=== PATIENT | male | born 1960 | race Caucasian/White ===

== ENCOUNTER 2018-08-14 18:58 | Inpatient (IN) ==
[2018-08-15] MEDS ORDERED: Naloxone 0.4 MG/ML INJ IVP PRN ×2 (00:52→14:26)
[2018-08-15] MEDS ORDERED: Artificial Tears SOLN 15 ML BOTTLE BOTH EYES PRN (00:55)
[2018-08-15] MEDS ORDERED: Dextrose Gel 15 GM/37.5 ML TUBE PO PRN ×4 (00:58→14:26)
[2018-08-15] MEDS ORDERED: *HR* Dextrose 50 % in Water (Syg) 50 ML SYRINGE IVP PRN ×2 (00:58→14:26)
[2018-08-15] MEDS ORDERED: D5% in Water 1,000 ML IVC PRN ×2 (00:58→14:26)
[2018-08-15 01:20] LABS: ABG Base Excess 5 mEq/L (-2 to 3); ABG HCO3 34 mEq/L (21-27); ABG Oxygen Saturation 98 % (95-98); ABG PCO2 69 mmHg (35-45); ABG PO2 114 mmHg (85-104); ABG TCO2 36 mEq/L (20-26); Blood Gas Modality PRVC; Blood Gas PEEP 5 cm H2O; Blood Gas Respiration Rate 16; Blood Gas VT 450 cc
[2018-08-15] MEDS: Artificial Tears SOLN 15 ML BOTTLE BOTH EYES SCH ×3 (01:25→13:09)
[2018-08-15 01:36] LABS: Basophils # 0.1 K/mcL (0.0-0.2); Basophils % 0.4 %; Hematocrit 44.8 % (37.5-50.1); Hemoglobin 13.6 g/dL (12.9-16.9); Immature Granulocytes % 0.8 % (0-4); Lymphocytes # 1.3 K/mcL (0.6-4.6); Lymphocytes % 9.1 %; Mean Corpuscular HGB Conc 30.4 g/dL (31.6-35.5); Mean Corpuscular Hemoglobin 29.8 pg (28.0-33.3); Mean Corpuscular Volume 98.2 fL (83.0-100.0); Mean Platelet Volume 9.7 fL (9.4-12.4); Monocytes # 1.1 K/mcL (0.0-1.3); Monocytes % 8.1 %; Neutrophils # 11.3 K/mcL (1.6-8.9); Nucleated Red Blood Cells 0.6 /100 WBC (0); Platelet Count 213 K/mcL (140-400); Red Blood Count 4.56 M/mcL (4.19-5.50); Red Cell Distribution Width 14.6 % (11.5-14.5); Segmented Neutrophils % 81.6 %
[2018-08-15 01:44] LABS: INR 1.2; Prothrombin Time 13.7 Seconds (9.4-12.1)
[2018-08-15 01:56] LABS: Alanine Aminotransferase 92 Units/L (7-52); Albumin 3.4 g/dL (3.5-5.7); Albumin/Globulin Ratio 1.1 (1.1-2.2); Alkaline Phosphatase 94 Units/L (34-104); Aspartate Amino Transferase 38 Units/L (13-39); BUN/Creatinine Ratio 28 (6-26); Bilirubin,Total 0.2 mg/dL (0.3-1.0); Blood Urea Nitrogen 27 mg/dL (6-20); Calcium 8.9 mg/dL (8.6-10.3); Carbon Dioxide 30 mEq/L (23-29); Chloride 105 mEq/L (98-107); Globulin 3.2 g/dL (2.4-3.5); Glucose 141 mg/dL (70-105); Osmolality,Calculated 301 (280-300); Sodium 142 mEq/L (136-145); Total Protein 6.6 g/dL (6.4-8.9); eGFR For Non-African Americans > 60 (> 60)
[2018-08-15] MEDS ORDERED: Lithium Oral Soln 300 MG/5 ML UDC PO SCH (02:00)
[2018-08-15] MEDS ORDERED: MethylPREDNISolone 40 MG/ML VIAL IVP SCH ×2 (02:00→18:00)
--- NOTE | 2018-08-15 02:03 | Internal Med History&Physical ---
<López Munoz - Last Filed: 08/15/18 03:51> Date of Encounter: 08/15/18 Time of Encounter: 12:45 Internal Medicine - H&P: HPI Chief complaint: AMS Admitted From: Emergency Dept Plans for Post Hospital Care: Home History of present illness: Mr. Parson is a 58 year old male with COPD, questionable history of CHF, extensive psychiatric history who presented from a long term due to history of altered mental status, shortness of breath and hypoxia. The patient was intubated in the ED and is sedated at this time, so he is unable to provide history of his own. History is provided primarily from prior notes as well as other providers. The patient apparently arrived at [facility] ED initially with confusion and was hypoxic with an SPO2 in the 50s. He also was noted to have a temperature of 100.4 according to EMS. According to documentation from the ED, the patient was initially placed on BiPAP but was not cooperative with this treatment modality and would not keep the mask on. Additionally the patient became somewhat combative. An initial ABG demonstrated a severe respiratory acidosis with a pH of 7.14 and a PaCO2 of 104 with a PaO2 of 64 and an O2 saturation of 82. He had a chest x-ray at that time as well which demonstrated ill-defined perihilar opacity which reflected possible edema versus infectious consolidation. Given the patient's poor respiratory status and inability to tolerate BiPAP, the patient was sedated and intubated, and was transferred to [facility] ICU for further management. Past Med Surg Social Fam HX - Past Medical History Medical history: non-contributory Additional medical history: patient is intubated/sedated at this time and cannot answer questions Psychiatric history: other - Social History Smoking Status: Current every day smoker Smokeless Tobacco Status: No Alcohol use: none Drug use: none Internal Medicine - H&P: Meds Acetaminophen [Non-Aspirin] 650 mg PO BID PRN 08/14/18 [History] Albuterol Sulfate [Albuterol Inhaler] 2 puff IH Q4HR PRN 08/14/18 [History] Atorvastatin Calcium [Lipitor] 40 mg PO DAILY 08/14/18 [History] Benztropine Mesylate 2 mg PO BID 08/14/18 [History] Budesonide/Formoterol 160/4.5 [Symbicort 160/4.5] 2 puff IH BIDR 08/14/18 [History] Docusate Sodium [Stool Softener] 100 mg PO HS 08/14/18 [History] Erythromycin OPTH Oint 1 appl RIGHT EYE ONCE 08/14/18 [History] Fluticasone Propionate Nasal [Flonase] 120 spray NS DAILY 08/14/18 [History] Ipratropium/Albuterol Neb [Duoneb] 1 appl IH TID PRN 08/14/18 [History] LORazepam [Ativan] 0.5 mg PO TID 08/14/18 [History] [place] Carbonate 600 mg PO HS 08/14/18 [History] Losartan [Cozaar] 25 mg PO DAILY 08/14/18 [History] Metformin HCl [Glucophage] 1,000 mg PO DAILY 08/14/18 [History] carBAMazepine [Tegretol] 200 mg PO BID 08/14/18 [History] fluPHENAZine decanoate [Fluphenazine Decanoate] 75 mg IJ Q2W 08/14/18 [History] Allergy/AdvReac Type Severity Reaction Status Date / Time No Known Allergies Allergy Verified 08/14/18 17:51 ROS unobtainable: due to mental status All Systems PM: A 10-system review of systems was performed and is negative for pertinent findings except as documented above in the HPI. - Constitutional Vitals: Temp Pulse Resp BP Pulse Ox 96.7 F L 79 16 101/75 97 08/15/18 00:42 08/15/18 02:00 08/15/18 02:00 08/15/18 02:00 08/15/18 02:00 Exam: Gen: Vitals noted. Patient is sedated and mechanically ventilated. Eyes: anicteric sclerae, moist conjunctivae; no lid-lag; Pupils equal and reactive to light HENT: Atraumatic; oropharynx with moist mucous membranes and no mucosal ulcerations, ET tube in place without obvious evidence of maceration present; normal hard and soft palate. Neck: Trachea midline; supple, no thyromegaly or lymphadenopathy Cardiac: RRR, no murmur, +S1/S2 Pulmonary: CTA bilaterally, no wheezes, rales or rhonchi, equal chest expansion Abdomen: soft, nontender, no guarding. No masses or hepatosplenomegaly. There is increased vascularity noted on the surface of his abdomen, however [place]. Extremities: no BLE edema, nontender calf, no cyanosis or clubbing. Angioma present on patient's face Skin: Normal temperature, turgor and texture; no rash, ulcers or subcutaneous nodules Neuro: Patient sedated and mechanically ventilated Internal Med - H&P Results - Labs CBC & Chem 7: 08/15/18 01:23 08/15/18 01:23 Labs: Short CBC 08/15/18 Range/Units 01:23 WBC 13.9 H (4.3-11.1) K/mcL Hgb 13.6 (12.9-16.9) g/dL Hct 44.8 (37.5-50.1) % Plt Count 213 (140-400) K/mcL Neutrophils # 11.3 H (1.6-8.9) K/mcL BMP 08/15/18 01:23 Sodium 142 Potassium 5.0 Chloride 105 Carbon Dioxide 30 H BUN 27 H Creatinine 0.97 Glucose 141 H Calcium 8.9 Cardiac Enzymes 08/15/18 Range/Units 01:23 Troponin I 0.09 H* (< 0.04) ng/mL Liver Function 08/15/18 Range/Units 01:23 Total Bilirubin 0.2 L (0.3-1.0) mg/dL AST 38 (13-39) Units/L ALT 92 H (7-52) Units/L Alkaline Phosphatase 94 (34-104) Units/L Albumin 3.4 L (3.5-5.7) g/dL - ABG Interpretation ABG results: 08/15/18 01:17 ABG pH 7.30 L ABG pCO2 69 H ABG pO2 114 H D ABG HCO3 34 H ABG Total CO2 36 H ABG O2 Saturation 98 ABG Base Excess 5 H - Assessment and plan (1) Acute respiratory failure with hypoxia and hypercapnia Current Visit: Yes Status: Acute Assessment and plan: Acute hypoxic hypercapnic respiratory failure Secondary to COPD exacerbation with pneumonia Patient arrived to ED with SPO2 in the 50s, acute hypercapnic encephalopathy CXR Showed perihilar edema vs consolidation ABG 08/14 - 7.14/104/64/36/82% (pre-intubation) 08/15 - 7.30/69/114/34/98 on 70% FIO2 (Post-intubation) Received Solu-medrol and Lasix in ED at [facility] Plan Admit to ICU Continuous O2 Monitoring Mechanical ventilation at this time, consult to pulmonology Propofol for sedation Treat COPD exacerbation and Pna as below (2) Acute exacerbation of chronic obstructive pulmonary disease (COPD) Current Visit: Yes Status: Acute Assessment and plan: Acute exacerbation of COPD Patient is increased O2 demand, CO2 retention Apparently the patient is a heavy smoker On arrival, patient's PaCO2 is 104, decreased with intubation He did receive IV Solu-Medrol 125 mg, azithromycin and Rocephin in the ED Plan Continue mechanical ventilation Solu-medrol IV 40mg q8h duonebs q4h scheduled Levaquin IV Continuous O2 monitoring (3) Community acquired pneumonia Current Visit: Yes Status: Acute Assessment and plan: Suspected CAP Presented with Fever 100.4, HR 110, Hypoxia, WBC 13 CXR shows suspected perihilar consolidation Received IV Azithromycin and Rocephin in the ED for COPD exacerbation/PNA We will switch to Levaquin at this time Repeat BMP in the AM Qualifiers: Laterality: unspecified laterality Qualified Code(s): J18.9 - Pneumonia, unspecified organism (4) Elevated troponin Current Visit: Yes Status: Acute Assessment and plan: Elevated Troponin, 0.14 No obvious indication of cardiac strain EKG is negative for acute ischemic changes Suspect this is secondary to demand ischemia in the setting of COPD exacerbation/PNA The patient does, however, have pulmonary edema on CXR and mildly elevated BNP at 300 Plan Continuous cardiac monitoring Trend trop q6h x3 Echocardiogram in am Consider cardio consult if necessary (5) Bipolar disorder Current Visit: Yes Status: Acute Assessment and plan: Suspected Bipolar Disorder, currently on multiple psychiatric medications We will continue those that can be given per OG, including [place] Qualifiers: Active/Remission status: remission status unspecified Qualified Code(s): F31.9 - Bipolar disorder, unspecified (6) Congestive heart failure Current Visit: Yes Status: Suspected Assessment and plan: History of CHF Mildly elevated BNP, CXR shows mild pulmonary edema Patient got IV Lasix 40mg in ED We will continue to monitor, consider additional lasix as needed Echocardiogram in AM Qualifiers: Heart failure type: diastolic Heart failure chronicity: acute Qualified Code(s): I50.31 - Acute diastolic (congestive) heart failure (7) DVT prophylaxis Current Visit: Yes Status: Acute Assessment and plan: SQ Heparin - Time Spent With Patient Total time spent is greater than 50% in coordination of care (as documented) at patient's floor/unit and/or counseling patient: <Juan A Haas - Last Filed: 08/15/18 07:15> Date of Encounter: 08/15/18 Internal Medicine - H&P: HPI History of present illness: Mr. Parson is a 58 year old male All Systems PM: A 10-system review of systems was performed and is negative for pertinent findings except as documented above in the HPI. - Constitutional Vitals: Temp Pulse Resp BP Pulse Ox 98.8 F 75 16 106/72 97 08/15/18 04:00 08/15/18 06:00 08/15/18 06:00 08/15/18 06:00 08/15/18 06:00 Internal Med - H&P Results - Labs CBC & Chem 7: 08/15/18 01:23 08/15/18 01:23 Labs: Short CBC 08/15/18 Range/Units 01:23 WBC 13.9 H (4.3-11.1) K/mcL Hgb 13.6 (12.9-16.9) g/dL Hct 44.8 (37.5-50.1) % Plt Count 213 (140-400) K/mcL Neutrophils # 11.3 H (1.6-8.9) K/mcL BMP 08/15/18 01:23 Sodium 142 Potassium 5.0 Chloride 105 Carbon Dioxide 30 H BUN 27 H Creatinine 0.97 Glucose 141 H Calcium 8.9 Cardiac Enzymes 08/15/18 Range/Units 01:23 Troponin I 0.09 H* (< 0.04) ng/mL Liver Function 08/15/18 Range/Units 01:23 Total Bilirubin 0.2 L (0.3-1.0) mg/dL AST 38 (13-39) Units/L ALT 92 H (7-52) Units/L Alkaline Phosphatase 94 (34-104) Units/L Albumin 3.4 L (3.5-5.7) g/dL - ABG Interpretation ABG results: 08/15/18 08/15/18 01:17 05:27 ABG pH 7.30 L 7.36 ABG pCO2 69 H 58 H ABG pO2 114 H D 111 H ABG HCO3 34 H 33 H ABG Total CO2 36 H 35 H ABG O2 Saturation 98 98 ABG Base Excess 5 H 6 H - Time Spent With Patient Total time spent is greater than 50% in coordination of care (as documented) at patient's floor/unit and/or counseling patient: - Attending Attestation I saw and evaluated the patient. I reviewed the residents note, performed my own physical examination and agree with findings and plan as documented in the residents note. Patient seen and examined on 08/15/18. Patient presented to [facility] ER with shortness of breath and hypoxia. Patient has history of COPD. Currently intubated. Elevated PCO2 on ABG, but improving now. Chest x-ray shows possible pneumonia. Will continue to monitor in the ICU, treat patient's pneumonia and COPD exacerbation.
[2018-08-15] MEDS: Insulin LISPRO 300 UNITS/3 ML VIAL SQ SCH ×3 (05:26→17:31)
[2018-08-15] MEDS: *HR* Heparin 5,000 UNIT/ML VIAL SQ SCH ×2 (05:28→14:12)
[2018-08-15 05:31] LABS: ABG Base Excess 6 mEq/L (-2 to 3); ABG HCO3 33 mEq/L (21-27); ABG Oxygen Saturation 98 % (95-98); ABG PCO2 58 mmHg (35-45); ABG PH 7.36 pH Units (7.32-7.45); ABG PO2 111 mmHg (85-104); ABG TCO2 35 mEq/L (20-26); Blood Gas Modality PRVC; Blood Gas PEEP 5 cm H2O; Blood Gas Respiration Rate 16; Blood Gas VT 480 cc
[2018-08-15 07:28] LABS: Estimated Average Glucose 123 mg/dl; Hemoglobin A1C 5.9 %
[2018-08-15] MEDS ORDERED: Dexmedetomidine HCl 400 MCG/100 ML MLS IVC ONE (07:59)
[2018-08-15] MEDS ORDERED: Dexmedetomidine HCl 400 MCG/100 ML MLS IVC SCH (08:00)
[2018-08-15] MEDS ORDERED: *HR* LORazepam 2 MG/ML VIAL IVP ONE (08:20)
--- NOTE | 2018-08-15 08:21 | Pulmonology Consult Note ---
<BravoraghavGeorgina goyal M - Last Filed: 08/15/18 09:17> Date of Encounter: 08/15/18 Medications and Allergies Acetaminophen [Non-Aspirin] 650 mg PO BID PRN 08/14/18 [History] Albuterol Sulfate [Albuterol Inhaler] 2 puff IH Q4HR PRN 08/14/18 [History] Atorvastatin Calcium [Lipitor] 40 mg PO DAILY 08/14/18 [History] Benztropine Mesylate 2 mg PO BID 08/14/18 [History] Budesonide/Formoterol 160/4.5 [Symbicort 160/4.5] 2 puff IH BIDR 08/14/18 [History] Docusate Sodium [Stool Softener] 100 mg PO HS 08/14/18 [History] Erythromycin OPTH Oint 1 appl RIGHT EYE ONCE 08/14/18 [History] Fluticasone Propionate Nasal [Flonase] 120 spray NS DAILY 08/14/18 [History] Ipratropium/Albuterol Neb [Duoneb] 1 appl IH TID PRN 08/14/18 [History] LORazepam [Ativan] 0.5 mg PO TID 08/14/18 [History] Puryear Carbonate 600 mg PO HS 08/14/18 [History] Losartan [Cozaar] 25 mg PO DAILY 08/14/18 [History] Metformin HCl [Glucophage] 1,000 mg PO DAILY 08/14/18 [History] carBAMazepine [Tegretol] 200 mg PO BID 08/14/18 [History] fluPHENAZine decanoate [Fluphenazine Decanoate] 75 mg IJ Q2W 08/14/18 [History] 3 Allergy/AdvReac Type Severity Reaction Status Date / Time No Known Allergies Allergy Verified 08/14/18 17:51 All Systems: The remainder of the systems were reviewed and are negative Physical Examination Vital Signs: Vital Signs, Last 4 Hours Temp Pulse Resp BP Pulse Ox 08/15/18 08:10 23 138/108 94 08/15/18 08:00 97.6 F 08/15/18 06:00 75 16 106/72 97 08/15/18 05:51 16 97 08/15/18 05:00 77 16 99/70 97 Ventilator Settings Ventilator Settings: Ventilator Settings, Last 8 Hours Ventilator Tidal Volume 480 Setting Ventilator Tidal Volume 480 Setting Ventilator Tidal Volume 480 Setting Ventilator Tidal Volume 480 Setting Ventilator Tidal Volume 480 Setting Ventilator Tidal Volume 480 Setting Ventilator Tidal Volume 480 Setting Ventilator Tidal Volume 480 Setting Ventilator Tidal Volume 450 Setting Ventilator Tidal Volume 450 Setting Ventilator Tidal Volume 450 Setting Ventilator Tidal Volume 450 Setting Ventilator Respiratory Rate 16 Setting Ventilator Respiratory Rate 16 Setting Ventilator Respiratory Rate 16 Setting Ventilator Respiratory Rate 16 Setting Ventilator Respiratory Rate 16 Setting Ventilator Respiratory Rate 16 Setting Ventilator Respiratory Rate 16 Setting Ventilator Respiratory Rate 16 Setting Ventilator Respiratory Rate 16 Setting Ventilator Respiratory Rate 16 Setting Ventilator Respiratory Rate 16 Setting Ventilator Respiratory Rate 16 Setting Actual Respiratory Rate 16 Actual Respiratory Rate 16 Actual Respiratory Rate 16 Actual Respiratory Rate 16 Actual Respiratory Rate 16 Actual Respiratory Rate 16 Actual Respiratory Rate 16 Actual Respiratory Rate 16 Actual Respiratory Rate 16 Positive End Expiratory 5 Pressure Positive End Expiratory 5 Pressure Positive End Expiratory 5 Pressure Positive End Expiratory 5 Pressure Positive End Expiratory 5 Pressure Positive End Expiratory 5 Pressure Positive End Expiratory 5 Pressure Positive End Expiratory 5 Pressure Positive End Expiratory 5 Pressure Positive End Expiratory 5 Pressure Positive End Expiratory 5 Pressure Positive End Expiratory 5 Pressure Peak Inspiratory Airway 24 Pressure Peak Inspiratory Airway 24 Pressure Peak Inspiratory Airway 23 Pressure Peak Inspiratory Airway 24 Pressure Peak Inspiratory Airway 23 Pressure Peak Inspiratory Airway 22 Pressure Peak Inspiratory Airway 24 Pressure Peak Inspiratory Airway 22 Pressure Peak Inspiratory Airway 24 Pressure Peak Inspiratory Airway 22 Pressure Results - Laboratory Findings CBC and BMP: 08/15/18 01:23 08/15/18 01:23 ABG ABG pH 7.36 pH Units (7.32-7.45) 08/15/18 05:27 ABG pCO2 58 mmHg (35-45) H 08/15/18 05:27 ABG pO2 111 mmHg (85-104) H 08/15/18 05:27 ABG O2 Saturation 98 % (95-98) 08/15/18 05:27 PT/INR, D-dimer PT 13.7 Seconds (9.4-12.1) H 08/15/18 01:23 Abnormal lab findings: Abnormal lab results WBC 13.9 K/mcL (4.3-11.1) H 08/15/18 01:23 MCHC 30.4 g/dL (31.6-35.5) L 08/15/18 01:23 RDW 14.6 % (11.5-14.5) H 08/15/18 01:23 Neutrophils # 11.3 K/mcL (1.6-8.9) H 08/15/18 01:23 Nucleated RBCs/100 WBC 0.6 /100 WBC (0) H 08/15/18 01:23 PT 13.7 Seconds (9.4-12.1) H 08/15/18 01:23 ABG pCO2 58 mmHg (35-45) H 08/15/18 05:27 ABG pO2 111 mmHg (85-104) H 08/15/18 05:27 ABG HCO3 33 mEq/L (21-27) H 08/15/18 05:27 ABG Total CO2 35 mEq/L (20-26) H 08/15/18 05:27 ABG Base Excess 6 mEq/L (-2 to 3) H 08/15/18 05:27 Carbon Dioxide 30 mEq/L (23-29) H 08/15/18 01:23 BUN 27 mg/dL (6-20) H 08/15/18 01:23 BUN/Creatinine Ratio 28 (6-26) H 08/15/18 01:23 Glucose 141 mg/dL (70-105) H 08/15/18 01:23 POC Glucose 136 mg/dL (70-99) H 08/15/18 05:22 Hemoglobin A1c 5.9 % (-5.6) H 08/15/18 01:23 Calculated Osmolality 301 (280-300) H 08/15/18 01:23 Total Bilirubin 0.2 mg/dL (0.3-1.0) L 08/15/18 01:23 ALT 92 Units/L (7-52) H 08/15/18 01:23 Troponin I 0.09 ng/mL (< 0.04) H* 08/15/18 01:23 Albumin 3.4 g/dL (3.5-5.7) L 08/15/18 01:23 - Clinical Findings Intake & Output: Intake & Output 08/14/18 08/15/18 08/15/18 23:59 07:59 15:59 Intake Total 85 / 85 Output Total 375 / 375 175 / 175 Balance -290 / -290 -175 / -175 Weight 92.4 kg Consult Discharge Plan - Plan Referrals: NONE,PCP [Primary Care Provider] - - Attending Attestation I examined this patient and my medical decision-making was reviewed with the Resident Physician. I agree with the documented findings, disposition and treatment plan as described except to the extent set forth below. Patient seen and examined. Labs, radiology, chart personally reviewed. Agree with resident's history and physical, assessment, plan with following comments: INSTRUCTOR OF SOCIOLOGY: Patient follows simple commands, is not clear to me about his baseline mental status, however I see him agitated and would need to have him on Precedex if he gets the appointment to be extubated Pulmonary: Acceptable oxygenation and ventilation, he is agitated and I believe he might be able to be extubated and I would have him on spontaneous breathing trial and assess for extubation. Challenge would be if he would need isra nvasive ventilation with his mental status and may be high flow oxygen for his acute hypoxic respiratory failure might be helpful. With his history of smoking and his chest x-ray to my interpretation is not clear to me whether he has some sorts of lung lesions in her right side or not and because of his age he will meet criteria to have the CT chest without contrast. He will be on bronchodilators and will be careful with high-dose systemic steroid with possibility of psychosis might happen. He will be on empiric antibiotics as well. Cardiovascular: stable GI: Nutrition per dietary and GI prophylaxis per routine Heme: DVT prophylaxis per routine ID: Continue antibiotics and plan to de-escalation Renal; urine out put and renal funtion reviewed Endorcine: blood glucose is monitored Lines: all lines checked and no evidence of infections Skin: skin care to prevent pressure ulcers per nursing routine care I spent 35 min of Critical Care time with this patient. It involved decision making of high complexity to assess, manipulate, and support vital organ system failure and/or to prevent further life threatening deterioration of the patient's condition. The time involved in the performance of separately reportable procedures was not counted toward critical care time. <Beryl Simmons - Last Filed: 08/15/18 10:34> Date of Encounter: 08/15/18 Time of Encounter: 08:21 Assessment and Plan (1) Acute respiratory failure with hypoxia and hypercapnia Current Visit: Yes Status: Acute Likely etiology of COPD exacerbation vs new onset CHF given elevated BNP. COPD exacerbation likely given signification smoking history but complicated by his inability to participate in care. ET tube removed and now tolerating high flow O2. - decrease solumedrol to q 12 from q 8 - continue dounebs Echo ordered CT chest ordered (2) Community acquired pneumonia Current Visit: Yes Status: Acute Chest x-ray with increased markings in upper right lung but no consolation with mild elevated WBC and history of temperature 100.4 on presentation - continue levaquin - see above CT chest to evaluate Qualifiers: Laterality: unspecified laterality Qualified Code(s): J18.9 - Pneumonia, unspecified organism (3) Psychiatric diagnosis Current Visit: Yes Status: Acute Unknown psychiatric diagnosis but history of hallucinations, possible bipolar disorder given lithium on medication list - recent agitation possibly exacerbated by ICU delirium and necessary steroid but will decrease dose to q 12 - trial 1 mg ativan once, continue home 0.5 tid - titrate precedex to keep awake but calm - social work consult to [facility] and contact guardian Consider psych consult if he doesn't improve once home medications confirmed by [facility]- start Tegretol & benztropine once confirmed and hold fluphenazine (4) Elevated troponin Current Visit: Yes Status: Acute Downtrending likely due to demand ischemia. Elevated troponin downtrend 0.14, 0.09. and 007. - repeat EKG as not on file - echo pending (5) Congestive heart failure Current Visit: Yes Status: Suspected Elevated BNP 310 with dyspnea - echo pending Qualifiers: Heart failure type: diastolic Heart failure chronicity: acute Qualified Code(s): I50.31 - Acute diastolic (congestive) heart failure (6) DM (diabetes mellitus) Current Visit: Yes Status: Acute DM currently on metformin with A1c 5.9 in pre-DM ranges v well controlled - hold metformin - continue low dose ISS Qualifiers: Diabetes mellitus type: type 2 Diabetes mellitus mcfp insulin use: without change lead use Diabetes mellitus complication status: with unspecified complications Qualified Code(s): E11.8 - Type 2 diabetes mellitus with unspecified complications (7) Syncope Current Visit: Yes Status: Acute Per half-way alerted mental status from his baseline with possible pre- syncopal episode likley due to hypoxia - consider head imaging pending clinical course/. Qualifiers: Syncope type: unspecified Qualified Code(s): R55 - Syncope and collapse (8) DVT prophylaxis Current Visit: Yes Status: Acute heparin sq History of Present Illness Consult date: 08/15/18 Requesting physician: López Munoz Reason for consult: dyspnea Chief complaint: acute on chronic respiratory failure History of present illness: 58 y/o male with COPD and unclear psychiatric history presented to [facility] ED from [facility] for altered mental status. He was intubated after failed Bipap due to hypoxia and decreased responsiveness. On transfer patient has become increasing agitated and refuses to comply with care- he attempted to self extubate this morning. This morning attempting to escape bed and fighting against nursing - thus given 1 mg ativan, precedex titrated and restrained for this own safety. Baseline mentation is unknown and little history available. History from half-way; he became difficult to wake up for dinner at night and cyanotic face . He acted normal day before with out complaints and always day- night swapped so sleepiness not unusual. Dayanna Raymundo runs [facility]-way where he has lived for over ten years. 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 He gets injection twice month of fluphenazine, carbazepine two tablets 200 mg bid , benztropine 2 mg bid . PMHx per [facility] HTN, DM, and COPD with out oxygen - no recent hospitalizations or illness. 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 Smoking 2-3 pk per day. EtOH and illicit unlikely unknown if he sneaks it. He has court appointed guardian Hammad Fine at [phone] and social media marketing analyst Gabrielle Tony at [place] ext [phone]. Past Med Surg Social Fam HX - Past Medical History Medical history: non-contributory Additional medical history: patient is intubated/sedated at this time and cannot answer questions Psychiatric history: other - Social History Smoking Status: Current every day smoker Smokeless Tobacco Status: No Alcohol use: none Drug use: none ROS unobtainable: due to mental status All Systems: The remainder of the systems were reviewed and are negative Physical Examination Vital Signs: Vital Signs, Last 4 Hours Temp Pulse Resp BP Pulse Ox 08/15/18 08:10 23 138/108 94 08/15/18 08:00 97.6 F 08/15/18 06:00 75 16 106/72 97 08/15/18 05:51 16 97 08/15/18 05:00 77 16 99/70 97 General appearance: no acute distress, asleep Eyes: nonicteric ENT: oropharynx moist Effort: mildly labored Auscultation: bilateral: wheezes, rhonchi (popping over left chest) Gastrointestinal: normoactive bowel sounds, soft, non-tender Integumentary: normal Extremities: no cyanosis, no edema Musculoskeletal: no deformities unable to assess due to mental status anxious (no sedated) Ventilator Settings Ventilator Settings: Ventilator Settings, Last 8 Hours Ventilator Tidal Volume 480 Setting Ventilator Tidal Volume 480 Setting Ventilator Tidal Volume 480 Setting Ventilator Tidal Volume 480 Setting Ventilator Tidal Volume 480 Setting Ventilator Tidal Volume 480 Setting Ventilator Tidal Volume 480 Setting Ventilator Tidal Volume 480 Setting Ventilator Tidal Volume 450 Setting Ventilator Tidal Volume 450 Setting Ventilator Tidal Volume 450 Setting Ventilator Tidal Volume 450 Setting Ventilator Respiratory Rate 16 Setting Ventilator Respiratory Rate 16 Setting Ventilator Respiratory Rate 16 Setting Ventilator Respiratory Rate 16 Setting Ventilator Respiratory Rate 16 Setting Ventilator Respiratory Rate 16 Setting Ventilator Respiratory Rate 16 Setting Ventilator Respiratory Rate 16 Setting Ventilator Respiratory Rate 16 Setting Ventilator Respiratory Rate 16 Setting Ventilator Respiratory Rate 16 Setting Ventilator Respiratory Rate 16 Setting Actual Respiratory Rate 16 Actual Respiratory Rate 16 Actual Respiratory Rate 16 Actual Respiratory Rate 16 Actual Respiratory Rate 16 Actual Respiratory Rate 16 Actual Respiratory Rate 16 Actual Respiratory Rate 16 Actual Respiratory Rate 16 Positive End Expiratory 5 Pressure Positive End Expiratory 5 Pressure Positive End Expiratory 5 Pressure Positive End Expiratory 5 Pressure Positive End Expiratory 5 Pressure Positive End Expiratory 5 Pressure Positive End Expiratory 5 Pressure Positive End Expiratory 5 Pressure Positive End Expiratory 5 Pressure Positive End Expiratory 5 Pressure Positive End Expiratory 5 Pressure Positive End Expiratory 5 Pressure Peak Inspiratory Airway 24 Pressure Peak Inspiratory Airway 24 Pressure Peak Inspiratory Airway 23 Pressure Peak Inspiratory Airway 24 Pressure Peak Inspiratory Airway 23 Pressure Peak Inspiratory Airway 22 Pressure Peak Inspiratory Airway 24 Pressure Peak Inspiratory Airway 22 Pressure Peak Inspiratory Airway 24 Pressure Peak Inspiratory Airway 22 Pressure Results - Laboratory Findings CBC and BMP: 08/15/18 01:23 08/15/18 01:23 ABG ABG pH 7.36 pH Units (7.32-7.45) 08/15/18 05:27 ABG pCO2 58 mmHg (35-45) H 08/15/18 05:27 ABG pO2 111 mmHg (85-104) H 08/15/18 05:27 ABG O2 Saturation 98 % (95-98) 08/15/18 05:27 PT/INR, D-dimer PT 13.7 Seconds (9.4-12.1) H 08/15/18 01:23 Abnormal lab findings: Abnormal lab results WBC 13.9 K/mcL (4.3-11.1) H 08/15/18 01:23 MCHC 30.4 g/dL (31.6-35.5) L 08/15/18 01:23 RDW 14.6 % (11.5-14.5) H 08/15/18 01:23 Neutrophils # 11.3 K/mcL (1.6-8.9) H 08/15/18 01:23 Nucleated RBCs/100 WBC 0.6 /100 WBC (0) H 08/15/18 01:23 PT 13.7 Seconds (9.4-12.1) H 08/15/18 01:23 ABG pCO2 58 mmHg (35-45) H 08/15/18 05:27 ABG pO2 111 mmHg (85-104) H 08/15/18 05:27 ABG HCO3 33 mEq/L (21-27) H 08/15/18 05:27 ABG Total CO2 35 mEq/L (20-26) H 08/15/18 05:27 ABG Base Excess 6 mEq/L (-2 to 3) H 08/15/18 05:27 Carbon Dioxide 30 mEq/L (23-29) H 08/15/18 01:23 BUN 27 mg/dL (6-20) H 08/15/18 01:23 BUN/Creatinine Ratio 28 (6-26) H 08/15/18 01:23 Glucose 141 mg/dL (70-105) H 08/15/18 01:23 POC Glucose 136 mg/dL (70-99) H 08/15/18 05:22 Hemoglobin A1c 5.9 % (-5.6) H 08/15/18 01:23 Calculated Osmolality 301 (280-300) H 08/15/18 01:23 Total Bilirubin 0.2 mg/dL (0.3-1.0) L 08/15/18 01:23 ALT 92 Units/L (7-52) H 08/15/18 01:23 Troponin I 0.09 ng/mL (< 0.04) H* 08/15/18 01:23 Albumin 3.4 g/dL (3.5-5.7) L 08/15/18 01:23 - Clinical Findings Intake & Output: Intake & Output 08/14/18 08/15/18 08/15/18 23:59 07:59 15:59 Intake Total 85 / 85 Output Total 375 / 375 175 / 175 Balance -290 / -290 -175 / -175 Weight 92.4 kg
[2018-08-15] MEDS ORDERED: *HR* LORazepam 2 MG/ML VIAL ONE (08:23)
[2018-08-15] MEDS: Ipratropium/Albuterol Neb 3 ML IH SCH ×5 (08:46→23:09)
[2018-08-15] MEDS: *HR* LORazepam 0.5 MG TABLET GTUBE SCH ×2 (08:51→14:13)
[2018-08-15] MEDS ORDERED: Levofloxacin 750 MG/150 ML 750 MG/150 ML BAG IVPB SCH (09:00)
[2018-08-15] MEDS ORDERED: Chlorhexidine Rinse 15 ML MOUTHWASH MM SCH (09:00)
[2018-08-15] MEDS ORDERED: Pantoprazole 40 MG VIAL IVP SCH (10:30)
[2018-08-15] MEDS ORDERED: Erythromycin OPTH Oint RIGHT EYE ONE (11:30)
[2018-08-15] MEDS ORDERED: *HR* LORazepam 0.5 MG TABLET GTUBE SCH (15:00)
[2018-08-15] MEDS: MethylPREDNISolone 40 MG/ML VIAL IVP SCH (17:42)
[2018-08-15] MEDS ORDERED: Insulin LISPRO 300 UNITS/3 ML VIAL SQ SCH (18:00)
[2018-08-15] MEDS: *HR* LORazepam 0.5 MG TABLET PO SCH (20:04)
[2018-08-15] MEDS: Budesonide/Formoterol 160/4.5 1 PUFF INH IH SCH (20:30)
[2018-08-15] MEDS ORDERED: Lithium Carbonate 300 MG CAPSULE PO SCH (21:00)
[2018-08-15] MEDS ORDERED: Budesonide/Formoterol 160/4.5 1 PUFF INH IH SCH (22:00)
[2018-08-16] MEDS: Insulin LISPRO 300 UNITS/3 ML VIAL SQ SCH ×4 (02:49→17:27)
[2018-08-16] MEDS: Lithium Oral Soln 300 MG/5 ML UDC PO SCH ×2 (03:14→19:40)
[2018-08-16] MEDS: *HR* Heparin 5,000 UNIT/ML VIAL SQ SCH ×4 (03:14→19:39)
[2018-08-16 04:10] LABS: Basophils % 0.2 %; Eosinophils % 0.3 %; Hematocrit 45.7 % (37.5-50.1); Hemoglobin 13.8 g/dL (12.9-16.9); Immature Granulocytes % 0.5 % (0-4); Lymphocytes # 1.7 K/mcL (0.6-4.6); Lymphocytes % 12.9 %; Mean Corpuscular HGB Conc 30.2 g/dL (31.6-35.5); Mean Corpuscular Hemoglobin 29.8 pg (28.0-33.3); Mean Corpuscular Volume 98.7 fL (83.0-100.0); Mean Platelet Volume 9.9 fL (9.4-12.4); Monocytes % 7.3 %; Neutrophils # 10.4 K/mcL (1.6-8.9); Nucleated Red Blood Cells 0.2 /100 WBC (0); Platelet Count 244 K/mcL (140-400); Red Blood Count 4.63 M/mcL (4.19-5.50); Segmented Neutrophils % 78.8 %
[2018-08-16] MEDS: Ipratropium/Albuterol Neb 3 ML IH SCH ×6 (04:19→23:54)
[2018-08-16 04:32] LABS: Alanine Aminotransferase 93 Units/L (7-52); Albumin 3.3 g/dL (3.5-5.7); Albumin/Globulin Ratio 1.1 (1.1-2.2); Alkaline Phosphatase 96 Units/L (34-104); Aspartate Amino Transferase 42 Units/L (13-39); BUN/Creatinine Ratio 27 (6-26); Bilirubin,Indirect 0.3 mg/dL (0.0-1.2); Bilirubin,Total 0.3 mg/dL (0.3-1.0); Blood Urea Nitrogen 22 mg/dL (6-20); Calcium 9.1 mg/dL (8.6-10.3); Carbon Dioxide 32 mEq/L (23-29); Chloride 104 mEq/L (98-107); Globulin 3.1 g/dL (2.4-3.5); Glucose 111 mg/dL (70-105); Osmolality,Calculated 296 (280-300); Potassium 4.5 mEq/L (3.5-5.1); Sodium 141 mEq/L (136-145); Total Protein 6.4 g/dL (6.4-8.9); eGFR For Non-African Americans > 60 (> 60)
[2018-08-16] MEDS: MethylPREDNISolone 40 MG/ML VIAL IVP SCH (06:16)
[2018-08-16] MEDS: Budesonide/Formoterol 160/4.5 1 PUFF INH IH SCH ×2 (07:59→20:01)
[2018-08-16] MEDS: Levofloxacin 750 MG/150 ML 750 MG/150 ML BAG IVPB SCH (08:20)
[2018-08-16] MEDS: *HR* LORazepam 0.5 MG TABLET PO SCH ×3 (08:21→19:39)
[2018-08-16] MEDS ORDERED: Pantoprazole 40 MG VIAL IVP SCH (09:00)
[2018-08-16] MEDS: predniSONE 20 MG TABLET PO SCH (09:30)
--- NOTE | 2018-08-16 10:58 | Internal Med Progress Note ---
Hospitalist Progress Note - Encounter Date of Encounter: 08/16/18 Time of Encounter: 10:57 - Subjective Interval History: 58 M admitted to ICU for acute resp failure norma secondary to PNA Seen and examined at bedside No new complains He remains confused, but not agitated He doesn't seem to retain any information at this time Head CT is negative Still requiring 4L O2 According to [facility], patient is AAOX3 and usually not agitated, however, they endorse reversal of sleep patterns, no abdomen imaging here, obtain ammonia - Exam Vitals: Temp Pulse Resp BP Pulse Ox 97.8 F 82 16 128/98 94 08/16/18 07:35 08/16/18 07:35 08/16/18 07:59 08/16/18 07:35 08/16/18 07:59 Exam: Gen: VSS. Not agitated, confused, oriented to self only, Eyes: anicteric sclerae, not pale HENT: Atraumatic; oropharynx with moist mucous membranes Neck: Normal on inspection Cardiac: RRR, no murmur, +S1/S2 Pulmonary: Bilateral rhonchi Abdomen: soft, nontender, no guarding. No masses or hepatosplenomegaly. There is increased vascularity noted on the surface of his abdomen, however [place]. Extremities: no BLE edema, nontender calf, no cyanosis or clubbing. Angioma present on patient's face Skin: Normal temperature, turgor and texture; no rash, ulcers or subcutaneous nodules Neuro: Awake, alert, oriented to person only, speech is without deficits, no facial paralysis, no gross motor deficits - Assessment and Plan (1) Acute exacerbation of chronic obstructive pulmonary disease (COPD) Current Visit: Yes Status: Acute Assessment and Plan: Change steroids to po Continue duoneb Continue antibiotics (2) Acute respiratory failure with hypoxia and hypercapnia Current Visit: Yes Status: Acute Assessment and Plan: Improving Continue O2 Wean as tolerated (3) Bipolar disorder Current Visit: Yes Status: Chronic Assessment and Plan: continue home meds (4) DM (diabetes mellitus) Current Visit: Yes Status: Chronic Assessment and Plan: SSI FS ACHS A1C 5.9-Controlled (5) DVT prophylaxis Current Visit: Yes Status: Acute Assessment and Plan: SQ heparin (6) Psychiatric diagnosis Current Visit: Yes Status: Chronic Assessment and Plan: Continue home meds - Time Spent with Patient Total time spent is greater than 50% in coordination of care (as documented) at patient's floor/unit and/or counseling patient: Plan of Care Discussed with: nurse Internal Medicine: Result - Labs CBC & Chem 7: 08/16/18 03:44 08/16/18 03:44 Labs: Short CBC 08/16/18 Range/Units 03:44 WBC 13.2 H (4.3-11.1) K/mcL Hgb 13.8 (12.9-16.9) g/dL Hct 45.7 (37.5-50.1) % Plt Count 244 (140-400) K/mcL Neutrophils # 10.4 H (1.6-8.9) K/mcL BMP 08/16/18 03:44 Sodium 141 Potassium 4.5 Chloride 104 Carbon Dioxide 32 H BUN 22 H Creatinine 0.81 Glucose 111 H Calcium 9.1 Cardiac Enzymes 08/15/18 Range/Units 13:14 Troponin I 0.07 H* (< 0.04) ng/mL Liver Function 08/16/18 Range/Units 03:44 Total Bilirubin 0.3 (0.3-1.0) mg/dL Direct Bilirubin 0.0 (0.0-0.2) mg/dL AST 42 H (13-39) Units/L ALT 93 H (7-52) Units/L Alkaline Phosphatase 96 (34-104) Units/L Albumin 3.3 L (3.5-5.7) g/dL - ABG Interpretation ABG results: ABG ABG pH 7.36 pH Units (7.32-7.45) 08/15/18 05:27 ABG pCO2 58 mmHg (35-45) H 08/15/18 05:27 ABG pO2 111 mmHg (85-104) H 08/15/18 05:27 ABG O2 Saturation 98 % (95-98) 08/15/18 05:27 PT/INR, D-dimer PT 13.7 Seconds (9.4-12.1) H 08/15/18 01:23 - Impressions Impressions Chest CT 08/15/18 08:03 IMPRESSION: 1. Scarring seen in both lungs 2. No acute abnormalities seen in the chest 3. No endobronchial lesions D/ / López Hussein MD / López Hussein MD Interpreting Provider: López Hussein MD Head CT 08/16/18 08:15 IMPRESSION: No acute intracranial abnormality. D/ / Melvin Douglas MD / Melvin Douglas MD Interpreting Provider: Melvin Douglas MD Consult Discharge Plan - Plan Referrals: NONE,PCP [Primary Care Provider] - (3) Bipolar disorder Qualifiers: Active/Remission status: remission status unspecified Qualified Code(s): F31.9 - Bipolar disorder, unspecified (4) DM (diabetes mellitus) Qualifiers: Diabetes mellitus type: type 2 Diabetes mellitus day spa manager insulin use: without day spa manager use Diabetes mellitus complication status: with unspecified complications Qualified Code(s): E11.8 - Type 2 diabetes mellitus with unspecified complications
[2018-08-17] MEDS: Insulin LISPRO 300 UNITS/3 ML VIAL SQ SCH ×5 (03:20→20:38)
[2018-08-17] MEDS: *HR* Heparin 5,000 UNIT/ML VIAL SQ SCH ×3 (03:52→20:42)
[2018-08-17] MEDS: Ipratropium/Albuterol Neb 3 ML IH SCH ×6 (03:57→23:41)
[2018-08-17 04:52] LABS: Basophils % 0.2 %; Eosinophils # 0.1 K/mcL (0.0-0.6); Hematocrit 43.8 % (37.5-50.1); Hemoglobin 13.5 g/dL (12.9-16.9); Immature Granulocytes % 0.4 % (0-4); Lymphocytes # 1.6 K/mcL (0.6-4.6); Lymphocytes % 13.9 %; Mean Corpuscular HGB Conc 30.8 g/dL (31.6-35.5); Mean Corpuscular Hemoglobin 29.9 pg (28.0-33.3); Mean Corpuscular Volume 96.9 fL (83.0-100.0); Mean Platelet Volume 9.7 fL (9.4-12.4); Neutrophils # 8.7 K/mcL (1.6-8.9); Platelet Count 249 K/mcL (140-400); Red Blood Count 4.52 M/mcL (4.19-5.50); Red Cell Distribution Width 14.3 % (11.5-14.5); Segmented Neutrophils % 75.5 %
[2018-08-17 05:11] LABS: BUN/Creatinine Ratio 21 (6-26); Blood Urea Nitrogen 18 mg/dL (6-20); Calcium 9.2 mg/dL (8.6-10.3); Carbon Dioxide 32 mEq/L (23-29); Chloride 105 mEq/L (98-107); Glucose 113 mg/dL (70-105); Osmolality,Calculated 295 (280-300); Potassium 3.9 mEq/L (3.5-5.1); Sodium 141 mEq/L (136-145); eGFR For Non-African Americans > 60 (> 60)
[2018-08-17] MEDS: Budesonide/Formoterol 160/4.5 1 PUFF INH IH SCH ×2 (07:39→19:52)
[2018-08-17] MEDS: predniSONE 20 MG TABLET PO SCH (09:34)
[2018-08-17] MEDS: Levofloxacin 750 MG/150 ML 750 MG/150 ML BAG IVPB SCH (09:35)
[2018-08-17] MEDS: *HR* LORazepam 0.5 MG TABLET PO SCH ×3 (09:35→20:37)
--- NOTE | 2018-08-17 10:59 | Internal Med Progress Note ---
Hospitalist Progress Note - Encounter Date of Encounter: 08/17/18 Time of Encounter: 10:58 - Subjective Interval History: 58 M admitted to ICU for acute resp failure norma secondary to PNA, acute encephalopathy Seen and examined at bedside No new complains Asking to be discharged home and "get out of this place" he is oriented X3, but often has tangentiality Per halfway, patient is AAOX3 and pleasant at baseline Elevated ammonia noted on labs from 08/16, awaiting liver USS, having BM O2 status improving, now on 2L , continue to wean as tolerated Patient may be transferred out of SDU to regular floor with tele - Exam Vitals: Temp Pulse Resp BP Pulse Ox 99.2 F 80 18 145/85 92 08/17/18 06:57 08/17/18 06:57 08/17/18 07:39 08/17/18 06:57 08/17/18 07:39 Exam: Gen: VSS. alert, oriented X3 Eyes: Anicteric, sclerae, not pale HENT: Atraumatic, oropharynx with moist mucous membranes Neck: Normal on inspection Cardiac: RRR, no murmur, +S1/S2 Pulmonary: CTAB, improved air entry Abdomen: soft, non-tender, no guarding. No masses or hepato-splenomegaly. There is increased vascularity noted on the surface of his abdomen, however med[place]. Extremities: no BLE edema, non-tender calf, no cyanosis or clubbing. Angioma present on patient's face Skin: Normal temperature, tugor and texture; no rash, ulcers or subcutaneous nodules Neuro: Awake, alert, oriented X3, speech is without deficits, no facial paralysis, no gross motor deficits Psych: tangentiality, not agitated at this time - Assessment and Plan (1) Acute exacerbation of chronic obstructive pulmonary disease (COPD) Current Visit: Yes Status: Acute Assessment and Plan: Continue steroids-day 3/5 Continue duonebs q4h Continue antibiotics-day 3/7 (2) Acute respiratory failure with hypoxia and hypercapnia Current Visit: Yes Status: Acute Assessment and Plan: Improving Continue O2, wean as tolerated (3) Bipolar disorder Current Visit: Yes Status: Chronic Assessment and Plan: continue home meds (4) DM (diabetes mellitus) Current Visit: Yes Status: Chronic Assessment and Plan: SSI FS ACHS A1C 5.9-Controlled, continue to monitor (5) DVT prophylaxis Current Visit: Yes Status: Acute Assessment and Plan: SQ heparin (6) Psychiatric diagnosis Current Visit: Yes Status: Chronic Assessment and Plan: Continue home meds haldol prn (7) Hyperammonemia Current Visit: Yes Status: Acute Assessment and Plan: Hyperammonemia with unknown etiology Ammonia level was 67, patient currently oriented 3 Obtain liver ultrasound Continue to monitor Patient had 2 bowel movements yesterday, we will not start lactulose at this time. LFTs are unremarkable DVT Prophylaxis: SQ heparin - Time Spent with Patient Total time spent is greater than 50% in coordination of care (as documented) at patient's floor/unit and/or counseling patient: Plan of Care Discussed with: patient Internal Medicine: Result - Labs CBC & Chem 7: 08/17/18 04:31 08/17/18 04:31 Labs: Short CBC 08/17/18 Range/Units 04:31 WBC 11.5 H (4.3-11.1) K/mcL Hgb 13.5 (12.9-16.9) g/dL Hct 43.8 (37.5-50.1) % Plt Count 249 (140-400) K/mcL Neutrophils # 8.7 (1.6-8.9) K/mcL BMP 08/17/18 04:31 Sodium 141 Potassium 3.9 Chloride 105 Carbon Dioxide 32 H BUN 18 Creatinine 0.85 Glucose 113 H Calcium 9.2 - ABG Interpretation ABG results: ABG ABG pH 7.36 pH Units (7.32-7.45) 08/15/18 05:27 ABG pCO2 58 mmHg (35-45) H 08/15/18 05:27 ABG pO2 111 mmHg (85-104) H 08/15/18 05:27 ABG O2 Saturation 98 % (95-98) 08/15/18 05:27 PT/INR, D-dimer PT 13.7 Seconds (9.4-12.1) H 08/15/18 01:23 Consult Discharge Plan - Plan Referrals: NONE,PCP [Primary Care Provider] - ___ (3) Bipolar disorder Qualifiers: Active/Remission status: remission status unspecified Qualified Code(s): F31.9 - Bipolar disorder, unspecified (4) DM (diabetes mellitus) Qualifiers: Diabetes mellitus type: type 2 Diabetes mellitus jail insulin use: without jail use Diabetes mellitus complication status: with unspecified complications Qualified Code(s): E11.8 - Type 2 diabetes mellitus with unspecified complications
[2018-08-17] MEDS ORDERED: Haloperidol Lactate 5 MG/ML VIAL IVP PRN (11:23)
[2018-08-17] MEDS ORDERED: Nicotine 2 MG GUM BC PRN (11:37)
[2018-08-17] MEDS: Haloperidol Lactate 5 MG/ML VIAL IVP ONE ×2 (12:33→13:13)
[2018-08-17] MEDS: Lithium Oral Soln 300 MG/5 ML UDC PO SCH (20:38)
[2018-08-18] MEDS: Ipratropium/Albuterol Neb 3 ML IH SCH ×6 (03:48→23:12)
[2018-08-18] MEDS: *HR* Heparin 5,000 UNIT/ML VIAL SQ SCH ×3 (05:21→20:59)
[2018-08-18 06:11] LABS: Basophils # 0.1 K/mcL (0.0-0.2); Basophils % 0.4 %; Eosinophils # 0.2 K/mcL (0.0-0.6); Eosinophils % 1.4 %; Hematocrit 46.8 % (37.5-50.1); Hemoglobin 14.9 g/dL (12.9-16.9); Immature Granulocytes % 0.7 % (0-4); Lymphocytes # 1.5 K/mcL (0.6-4.6); Lymphocytes % 11.8 %; Mean Corpuscular HGB Conc 31.8 g/dL (31.6-35.5); Mean Corpuscular Hemoglobin 30.2 pg (28.0-33.3); Mean Corpuscular Volume 94.9 fL (83.0-100.0); Mean Platelet Volume 10.3 fL (9.4-12.4); Monocytes # 0.9 K/mcL (0.0-1.3); Monocytes % 7.6 %; Neutrophils # 9.6 K/mcL (1.6-8.9); Platelet Count 222 K/mcL (140-400); Red Blood Count 4.93 M/mcL (4.19-5.50); Red Cell Distribution Width 14.1 % (11.5-14.5); Segmented Neutrophils % 78.1 %
[2018-08-18 06:27] LABS: BUN/Creatinine Ratio 21 (6-26); Blood Urea Nitrogen 17 mg/dL (6-20); Calcium 9.3 mg/dL (8.6-10.3); Carbon Dioxide 30 mEq/L (23-29); Chloride 104 mEq/L (98-107); Glucose 101 mg/dL (70-105); Osmolality,Calculated 288 (280-300); Potassium 4.6 mEq/L (3.5-5.1); Sodium 138 mEq/L (136-145); eGFR For Non-African Americans > 60 (> 60)
[2018-08-18 06:36] LABS: Platelet Estimate Normal (Normal)
[2018-08-18 06:37] LABS: Polychromasia 1+ (Not Present)
[2018-08-18] MEDS: Budesonide/Formoterol 160/4.5 1 PUFF INH IH SCH ×2 (07:19→23:12)
[2018-08-18] MEDS: Insulin LISPRO 300 UNITS/3 ML VIAL SQ SCH ×4 (08:56→20:55)
[2018-08-18] MEDS: *HR* LORazepam 0.5 MG TABLET PO SCH ×3 (10:09→20:53)
[2018-08-18] MEDS: predniSONE 20 MG TABLET PO SCH (10:10)
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
[2018-08-18] MEDS: levoFLOXacin 750 MG TABLET PO SCH (11:52)
[2018-08-18] MEDS: carBAMazepine 200 MG TABLET PO SCH (20:53)
[2018-08-18] MEDS: Lithium Oral Soln 300 MG/5 ML UDC PO SCH (20:55)
[2018-08-19] MEDS: Ipratropium/Albuterol Neb 3 ML IH SCH ×5 (03:38→19:41)
[2018-08-19] MEDS: *HR* Heparin 5,000 UNIT/ML VIAL SQ SCH ×2 (05:39→14:57)
[2018-08-19] MEDS: Budesonide/Formoterol 160/4.5 1 PUFF INH IH SCH ×2 (07:39→19:41)
[2018-08-19] MEDS: levoFLOXacin 750 MG TABLET PO SCH (09:54)
[2018-08-19] MEDS: carBAMazepine 200 MG TABLET PO SCH (09:55)
[2018-08-19] MEDS: predniSONE 20 MG TABLET PO SCH (09:55)
[2018-08-19] MEDS: *HR* LORazepam 0.5 MG TABLET PO SCH ×2 (09:55→15:25)
[2018-08-19] MEDS: Insulin LISPRO 300 UNITS/3 ML VIAL SQ SCH ×3 (09:56→17:15)
[2018-08-19 15:20] VITALS: BP 120/82
== END 2018-08-19 18:15 | disposition home or self-care (01) | DRG 208 ==
LOC: ICNU 08-15 00:32 → SUATTDRO 08-15 00:32 → 2NNU 08-15 15:34 → 2ANU 08-17 12:11
PROVIDERS: ADMIT Internal Medicine Cardiovascular Disease; ATTEND Hospitalist